=== PATIENT | female | born 1960 ===

== ENCOUNTER 2021-12-04 05:45 | Day surgery (SDC) | payer OTHER | END 2021-12-04 09:35 | disposition home or self-care (01) | LOC: AMB-ENDOS 05:45 | PROVIDERS: ATTEND Surgery | DX: D12.2 Benign neoplasm of ascending colon (principal) ==

== ENCOUNTER 2022-05-08 10:45 | Inpatient (IN) | payer OTHER ==
[~2022-05-08] VITALS: Ht 152.4 cm; Wt 56.7 kg
[2022-05-08] MEDS ORDERED: SYNTHROID75 MCG PO (13:14)
[2022-05-08] MEDS ORDERED: BUPRO PO ×3 (13:14→13:16)
[2022-05-08] MEDS ORDERED: CRESTOR5 MG PO (13:15)
[2022-05-08] MEDS ORDERED: ANASTROZOLE1 MG PO (13:16)
[2022-05-08] MEDS ORDERED: VITAMIN D PO (13:17)
[2022-05-08] MEDS ORDERED: CENTRUM ADULTS1 EACH PO (13:17)
[2022-05-15] MEDS ORDERED: ULTRAM50 MG PO (13:32)
== END 2022-05-15 15:47 | disposition home or self-care (01) | DRG 331 ==
LOC: O/R 05-13 08:33 → SURH 05-13 10:45
PROVIDERS: ADMIT Surgery; ATTEND Surgery
PROC: 07BB4ZZ Excision of Mesenteric Lymphatic, Percutaneous Endoscopic Approach (ICD-10-PCS; 2022-05-13)
PROC: 0DTF4ZZ Resection of Right Large Intestine, Percutaneous Endoscopic Approach (ICD-10-PCS; principal; 2022-05-13 20:30)
DX: C18.2 Malignant neoplasm of ascending colon (principal); Z20.822 Contact with and (suspected) exposure to COVID-19; E78.49 Other hyperlipidemia; E03.8 Other specified hypothyroidism; I10 Essential (primary) hypertension